=== PATIENT | female | born 2000 | race Caucasian/White ===

== ENCOUNTER 2024-09-19 11:25 | Emergency (ER) | payer BC, SELFPAY ==
[2024-09-19 11:27] VITALS: BMI 26.6
[2024-09-19 11:52] VITALS: BP 132/89; PULSE 100; RESP 18; TEMP 37.2; O2SAT 98
--- NOTE | 2024-09-19 12:03 | EDNOTE_ITS ---
ED Dental RME/HPI General Chief complaint: Dental/Oral/Throat Stated complaint: SENT BY CLINIC, THROAT PAIN AND SWELLING Time Seen by Provider: 09/19/24 11:36 Arrival date/time: 09/19/24 11:25 23-year-old female presents the emergency department complains of sore throat and swelling patient reports symptoms ongoing for the last couple of days patient reports no fever nausea vomiting there are no other associated symptoms or aggravating factors no other modifying factors, patient denies taking medication before coming to ER today Limitations: no limitations Related Data Previous Rx's ?Medication ?Instructions ?Recorded ibuprofen 600 mg tablet 600 mg PO Q6H #30 tabs 03/10/20 clindamycin HCl 300 mg capsule 300 mg PO TID 7 days #21 caps 09/19/24 ibuprofen 600 mg tablet 600 mg PO Q6H #30 tabs 09/19/24 prednisone 20 mg tablet 20 mg PO BID 3 days #6 tabs 09/19/24 Allergies Allergy/AdvReac Type Severity Reaction Status Date / Time promethazine Allergy Severe Swelling Verified 09/19/24 11:26 of Lip/Tongue/Throat amoxicillin Allergy Mild RASH, RESP Verified 09/19/24 11:26 DIFFICULTY Review of Systems Review of Systems Systems Reviewed: All systems reviewed, normal except as documented Constitutional Constitutional: Reports system reviewed and no additional complaints, except as documented, Denies fever(s) and Denies headache(s) Eyes Eyes: Reports system reviewed and no additional complaints, except as documented and Denies blurry vision ENT Ears, Nose, Mouth, and Throat: Reports system reviewed and no additional complaints, except as documented, Denies headache(s), Denies nasal congestion, Denies nasal discharge, Reports sore throat and Reports throat swelling Cardiovascular Cardiovascular: Reports system reviewed and no additional complaints, except as documented, Denies chest pain and Denies dyspnea Respiratory Respiratory: Reports system reviewed and no additional complaints, except as documented, Denies chest congestion, Denies cough and Denies dyspnea Gastrointestinal Gastrointestinal: Reports system reviewed and no additional complaints, except as documented and Denies abdominal pain Integumentary/Breasts Skin/Breast: Reports system reviewed and no additional complaints, except as documented and Denies rash Neurologic Neurologic: Reports system reviewed and no additional complaints, except as documented, Reports as per HPI and Denies headache(s) Allergic/Immunologic Allergic/Immunologic: Reports throat swelling Past Medical History Past Medical History NEUROLOGIC: Negative Neurological Disorders CARDIAC: Negative Cardiac Disorders ED Exam General Limitations: Present no limitations General appearance: Present alert and in no apparent distress Head Head exam: Present atraumatic, normocephalic and normal inspection Eye Eye exam: Present normal appearance, PERRL and EOMI; Absent conjunctival injection ENT ENT exam: Present mucous membranes moist Expanded ENT Exam Throat exam: Present tonsillar erythema, tonsillomegaly and tonsillar exudate; Absent R peritonsillar mass, L peritonsillar mass or muffled voice Neck Neck exam: Present normal inspection, full ROM and trachea midline Chest Chest inspection: Present normal inspection and symmetric chest wall rise Respiratory Respiratory exam: Present normal lung sounds bilaterally; Absent respiratory distress Cardiovascular Cardiovascular exam: Present regular rate, normal rhythm and normal heart sounds Abdominal Exam Abdominal exam: Present soft and normal bowel sounds; Absent distention, tenderness, guarding, rebound or rigidity Extremities Exam Extremities exam: Present normal inspection and full ROM Back Exam Back exam: Present normal inspection and full ROM Neurological Exam Neurological exam: Present alert, oriented X3 and CN II-XII intact Psychiatric Psychiatric exam: Present normal affect and normal mood Skin Skin exam: Present warm, dry, intact and normal color; Absent rash Course Quality Measures none Orders Category Date Time Status Clindamycin Vial [Cleocin vial] Med 09/19/24 11:57 Discontinued 600 mg IM X1 ONE Dexamethasone Inj [Decadron Inj] Med 09/19/24 11:57 Discontinued 10 mg PO X1 ONE Ibuprofen Tab [Motrin Tab] Med 09/19/24 11:57 Discontinued 800 mg PO X1 ONE Lidocaine 1% 20 ml [Xylocaine 1% 20 ML] Med 09/19/24 11:57 Discontinued 2.1 ml INFL X1 ONE Vital Signs Vital signs: Vital Signs Temperature 98.9 F 09/19/24 11:52 Pulse Rate 100 09/19/24 11:52 Respiratory Rate 18 09/19/24 11:52 Blood Pressure 132/89 H 09/19/24 11:52 Pulse Oximetry (%) 98 09/19/24 11:52 Oxygen Delivery Method Room Air 09/19/24 11:52 O2 saturation 98% room air within normal limits Dental / Oral MDM Narrative MDM Narrative:: 23-year-old female presents the emergency department complains of sore throat and swelling patient reports symptoms ongoing for the last couple of days patient reports no fever nausea vomiting there are no other associated symptoms or aggravating factors no other modifying factors, patient denies taking medication before coming to ER today On exam patient well-appearing patient does not appear ill or toxic in no acute distress Patient is no trismus no hoarseness of voice no evidence of peritonsillar abscess patient does have tonsillar swelling consistent with pharyngitis patient be given a course of antibiotics and pain medication as well as steroids Patient discharged home in no distress to follow-up with primary care doctor in the next 24 to 48 hours and for any worsening symptoms to return to the ER immediately Patient data External records reviewed:: [facility] previous records Clinical information provided by:: patient Social determinants that could affect healthcare access:: none Patient has the following chronic illnesses:: None How is presenting disease/condition affected by chronic disease/condition?: no chronic disease Evaluation data The following diagnostics were reviewed and interpreted by me:: other (specify) (N/A) Lab and/or radiology exams considered but not ordered:: Consider not ordered Interpretation Summary: N/A Medications / Prescriptions Medications or Prescriptions considered but not ordered:: Given Medication administrations:: Medication Administration History Discontinued Medications Clindamycin Phosphate (Clindamycin Phos Inj 150 Mg/Ml Vial 6 Ml) 600 mg IM X1 ONE Stop: 09/19/24 11:58 Last Admin: 09/19/24 12:22 Dose: 600 mg Documented By: ER Dexamethasone Sodium Phosphate (Dexamethasone Sod Phos Inj 10 Mg/Ml Vial) 10 mg PO X1 ONE Stop: 09/19/24 11:58 Last Admin: 09/19/24 12:23 Dose: 10 mg Documented By: ER Ibuprofen (Ibuprofen Tab 400 Mg Tablet) 800 mg PO X1 ONE Stop: 09/19/24 11:58 Last Admin: 09/19/24 12:23 Dose: 800 mg Documented By: ER Lidocaine HCl (Lidocaine Hcl 1% 20 Ml Vial) 2.1 ml INFL X1 ONE Stop: 09/19/24 11:58 Last Admin: 09/19/24 12:23 Dose: Not Given Documented By: ER Non-Admin Reason: Cancelled by Provider Given Consultations Consultation(s) initiated? (list below): No Diagnosis Dental Differential Diagnosis: gingival abscess, dental caries, toothache and dental abscess Most likely diagnosis given after review of the tests above:: Pharyngitis Admission Indicated Admission indicated?: not indicated Admission Request Was there a request for admission?: No Disposition Plan Disposition Plan: Discharge Discharge Attestation Discharge Attestation: The patient and all family members were given an opportunity to ask questions and understood the discharge instructions. Discharge instructions specifically effects, indications for sooner follow up or return to the emergency department, and the expected course of current diagnosis. Patient condition: Stable Discharge Plan Plan Patient Disposition: HOME (Self Care) Disposition Comment: Stable Prescriptions/Referrals Prescriptions/Med Rec: New clindamycin HCl 300 mg capsule 300 mg PO TID 7 Days Qty: 21 0RF prednisone 20 mg tablet 20 mg PO BID 3 Days Qty: 6 0RF ibuprofen 600 mg tablet 600 mg PO Q6H Qty: 30 0RF No Action ibuprofen 600 mg tablet 600 mg PO Q6H Qty: 30 0RF Problem List Clinical Impression: Pharyngitis Patient/Caregiver Discharge Instructions Additional Instructions: Please follow up with your primary care doctor in the next 24-48hrs for any worsening symptoms return here immediately Print Language: French Stand Alone Forms: Lashae Award Info., Work/School Release, Patient Portal Info Letter JAE/AVIS Supervising Physician JAE/AVIS Supervising Physician: Dr. moy
[2024-09-19] MEDS: CLINDAMYCIN PHOS INJ 150 MG/ML VIAL 6 ML 600 MG IM (12:22)
[2024-09-19] MEDS: IBUPROFEN TAB 400 MG TABLET 800 MG PO (12:23)
[2024-09-19] MEDS: DEXAMETHASONE SOD PHOS INJ 10 MG/ML VIAL PO (12:23)
== END 2024-09-19 12:47 | disposition home or self-care (01) ==
PROVIDERS: Emergency Provider Emergency Medicine; PCP Physician Assistant
DX: J02.9 Acute pharyngitis, unspecified (principal)
CPT/HCPCS: 96372; 99283; J0736; J1100; A9270

== ENCOUNTER 2025-07-02 12:20 | Emergency (ER) | payer BC, MEDICAID, SELFPAY ==
[2025-07-02 12:53] VITALS: BP 128/69; PULSE 87; RESP 19; TEMP 36.7; O2SAT 100; BMI 27.1
--- NOTE | 2025-07-02 13:16 | XR_ITS ---
EXAMINATION: Ankle, right 3 views. Technique: Ankle AP, oblique, lateral 3 views Date and time of exam: July 02, 2025, 1330 hours INDICATIONS: Injury to the ankle 2 days ago, ankle pain. FINDINGS: Acute fractures distal fibula with minimal offset No ankle dislocation IMPRESSION: Acute fractures distal fibula
--- NOTE | 2025-07-02 13:19 | PD.EDRME ---
Rapid Medical Screening Exam RME Arrival date/time: 07/02/25 12:20 Chief Complaint: Extremity Injury, Lower Time Seen by Provider: 07/02/25 13:15 Vital signs: Vital Signs Temperature 98.1 F 07/02/25 12:53 Pulse Rate 87 07/02/25 12:53 Respiratory Rate 19 07/02/25 12:53 Blood Pressure 128/69 07/02/25 12:53 Pulse Oximetry (%) 100 07/02/25 12:53 Oxygen Delivery Method Room Air 07/02/25 12:53 RME Narrative: Patient was running and twisted her right ankle now complaining of pain and swelling. Denies numbness tingling or weakness.
--- NOTE | 2025-07-02 15:37 | EDNOTE_ITS ---
ED General RME/HPI General Chief complaint: Extremity Injury, Lower Stated complaint: R) LEG INJURY, 06/30 Time Seen by Provider: 07/02/25 13:15 Arrival date/time: 07/02/25 12:20 CC: Right ankle pain HPI after sliding into a base while playing baseball, the patient felt a pop sensation within experiencing immediate pain. Patient denies numbness or tingling in the lower extremity denies any other symptoms. Localized pain is a 5-6 on a 10 scale. Nonradiating. No other complaints at this time including hip knee or left ankle pain RME / HPI RME / HPI narrative: Patient was running and twisted her right ankle now complaining of pain and swelling. Denies numbness tingling or weakness. Related Data Previous Rx's ?Medication ?Instructions ?Recorded ibuprofen 600 mg tablet 600 mg PO Q6H #30 tabs 03/10 ibuprofen 600 mg tablet 600 mg PO Q6H #30 tabs 09/19 Allergies Allergy/AdvReac Type Severity Reaction Status Date / Time promethazine Allergy Severe Swelling Verified 07/02/25 12:23 of Lip/Tongue/Throat amoxicillin Allergy Mild RASH, RESP Verified 07/02/25 12:23 DIFFICULTY Review of Systems Review of Systems Narrative Review of Systems: GEN: No fever, no chills, no weight loss EYES: No discharge, no visual changes, no pain HEENT: No ear pain, no congestion, no sore throat PULM: No shortness of breath, no cough, no congestion CV: No chest pain, no dyspnea on exertion, no palpitations GI: No nausea, no vomiting, no diarrhea, no pain, no constipation : No frequency, no urgency, no dysuria MUSC/SKEL: + joint pain, no back pain SKIN: No rash PSYCH: No hallucinations, no depression HEME/LYMPH: No easy bleeding or bruising tendencies NEURO: No weakness, no headache Past Medical History Past Medical History NEUROLOGIC: Negative Neurological Disorders CARDIAC: Negative Cardiac Disorders or Congestive Heart Failure RESPIRATORY: Negative Chronic Obstructive Pulmonary Disease (COPD) GENITOURINARY: Negative Renal Disease ENDOCRINE: Negative Diabetes Mellitus Type 1 or Diabetes Mellitus Type 2 Social History SMOKING STATUS: Current every day smoker ED Exam Narrative Physical exam: [General: In moderate discomfort not in any acute distress Head normocephalic HEENT: Eyes pupils are PERRLA EOMs are intact all of the substance of HEENT are within acceptable limits Neck is supple nontender Chest equal chest rise nontender to palpation Respiratory: Clear to auscultation no wheezes crackles or rubs CV: Rate rhythm is regular no murmurs rubs or clicks Abdomen is distended secondary to body habitus soft nontender no masses positive bowel sounds all 4 quadrants Back: No CVA tenderness no spinous process tenderness from cervical spine thoracic and lumbar spine Skin: Intact no petechiae rash induration ulceration or crepitus Extremities: Right lower extremity, tenderness to palpation with edema to the medial and lateral malleolus cap refill the digits less than 2 seconds decreased range of motion secondary to pain. No pain with calcaneal squeeze or Achilles palpation. No pain with distal and metatarsal squeeze. Moving all other extremities against resistance cap refill less than 2 seconds neurosensory intact Neuro: Awake alert oriented x3 Glascow coma 15 no focal deficits] Course Quality Measures none Orders Category Date Time Status Crutches .NOW Care 07/02/25 15:36 Active Splint / Immobilizer STAT Care 07/02/25 15:26 Active XR ankle comp RT min 3V Stat Exams 07/02/25 13:16 Completed HYDROcodone*/APAP 5/325 [[place] 5/325] Med 07/02/25 13:19 Discontinued 1 tab PO X1 ONE Vital Signs Vital signs: Vital Signs Temperature 98.1 F 07/02/25 12:53 Pulse Rate 87 07/02/25 12:53 Respiratory Rate 19 07/02/25 12:53 Blood Pressure 128/69 07/02/25 12:53 Pulse Oximetry (%) 100 07/02/25 12:53 Oxygen Delivery Method Room Air 07/02/25 12:53 Discharge Plan Plan Patient Disposition: HOME (Self Care) Patient condition on transfer: Stable Prescriptions/Referrals Prescriptions/Med Rec: No Action ibuprofen 600 mg tablet 600 mg PO Q6H Qty: 30 0RF ibuprofen 600 mg tablet 600 mg PO Q6H Qty: 30 0RF Referrals: Gracy Loyd PA-C [Primary Care Provider, Family Practice] - In 1 week Lamine Benson MD [Physician, Orthopedics] - In 1 week Problem List Clinical Impression: Fracture of distal end of fibula Patient/Caregiver Discharge Instructions Education Materials: ED Fracture, Lower Extremity Additional Instructions: No weightbearing on the ankle use the crutches extensively, follow-up with the orthopedic doctor listed above keep the ankle elevated above the level of your heart for the next 2 to 3 days ice intermittently. Do not get the splint wet or remove it. Print Language: Scottish Stand Alone Forms: Lashae Award Info., Work/School Release, Patient Portal Info Letter PA/AVIS Supervising Physician JAE/AVIS Supervising Physician: Wolfgang SANCHEZ Clinical Information Provided by: patient Medical Records reviewed [facility] Meds/Rx considered, not ordered None Labs/Rad/Tests considered, not ordered None Chronic Illness/Social Conditions which may negatively complicate care or outcome(s)-explain: None or not applicable EKG EKG not done Labs Labs: none Imaging Imaging interpretation: interpreted by me Imaging Interpretation(s): Distal fibular fracture Medication Administration(s) none Medication Administration History Discontinued Medications Hydrocodone Bitart/Acetaminophen (Hydrocodone/Apap 5/325 Tablet) 1 tab PO X1 ON E Stop: 07/02/25 13:20 Last Admin: 07/02/25 13:38 Dose: Not Given Documented By: BD Non-Admin Reason: Patient Refused Diagnosis Differential Diagnosis ED Complaint MDM: Ankle fracture fracture dislocation bimalleolar trimalleolar fracture
== END 2025-07-02 16:15 | disposition home or self-care (01) ==
PROVIDERS: Emergency Provider Family Medicine; PCP Physician Assistant
DX: S82.831A Other fracture of upper and lower end of right fibula, initial encounter for closed fracture (principal); X50.1XXA Overexertion from prolonged static or awkward postures, initial encounter; Y93.64 Activity, baseball
CPT/HCPCS: 29505; 73610; 99283